=== PATIENT | male | born 1995 | race Caucasian/White ===

== ENCOUNTER 2024-10-14 03:44 | Emergency (ER) | payer SELFPAY ==
[~2024-10-14] VITALS: Ht 167.6 cm; Wt 64.0 kg
[2024-10-14 03:54] VITALS: O2SAT 99
[2024-10-14] MEDS: LEVETIRACETAM 1000MG PREMIX 100 ML IV ONE (04:48)
[2024-10-14] MEDS: SODIUM CHLORIDE 0.9% 1,000 ML IV ONE (04:48)
[2024-10-14 04:55] LABS: BASOPHILS % 0.3 % (0.0-2.0); EOSINOPHILS % 0.2 % (0.0-5.0); HEMATOCRIT. 39.2 % (42.0-52.0); HEMOGLOBIN. 13.2 g/dL (14.0-18.0); LYMPHOCYTES % 10.7 % (20.0-50.0); MEAN PLATELET VOLUME 7.9 fl (7.4-10.4); MONOCYTES % 5.6 % (2.0-8.0); NEUTROPHILS % 83.2 % (40.0-76.0); PLATELET 305 x1000/uL (130-400); RED BLOOD CELL COUNT 4.41 mill/uL (4.7-6.1); RED CELL DISTRIBUTION WIDTH 12.9 % (11.6-14.6)
[2024-10-14] MEDS ORDERED: KEPP500 MT (05:02)
[2024-10-14 05:09] LABS: CREATININE 1.0 mg/dL (0.6-1.3); UREA NITROGEN BLOOD 18 mg/dL (9-23)
[2024-10-14 06:04] VITALS: BP 128/65; PULSE 94; RESP 14; TEMP 36.8; O2SAT 98
== END 2024-10-14 06:33 | disposition home or self-care (01) ==
LOC: ER 03:48
DX: R56.9 Unspecified convulsions (principal); F12.90 Cannabis use, unspecified, uncomplicated
CPT/HCPCS: 99284; 96365; 80048; 85025; 36415; 93005; J1953; J7030